=== PATIENT | male | born 1955 | race Hispanic/Latino ===

== ENCOUNTER 2016-10-25 11:34 | Emergency (ER) | payer OTHER ==
[~2016-10-25] VITALS: Ht 165.1 cm; Wt 78.2 kg
[~2016-10-25 11:34] MED LIST: ASPI325T32 PO; ATOR40TA69 PO; BUPR100T7 PO; DES50 PO; LISI-571 PO; METF500T4 PO
[2016-10-25 11:37] VITALS: BP 125/75; PULSE 64; RESP 16; O2SAT 97
--- NOTE | 2016-10-25 11:42 | ED.REPORT ---
HPI-Chest Pain 40 and Over Date of Service Oct 25, 2016 ED Provider: Jenna Villalobos MD Patient is a 61 year old male w/ a hx of DM (no insulin), HTN, and stroke who presents to the ED accompanied by his due to chest pain that woke him up at 0400 this morning. Pt denies SOB and nausea, and is not currently experiencing any symptoms. He had one aspirin [employer]. He doesn't remember what pill he takes for blood pressure. A previous stroke has left him numb in his left chest and left arm. Pt saw a doctor 2 days ago, but was not having any symptoms at the time. Nursing Notes Stated Complaint: CHEST PAIN Chief Complaint: Chest Pain Nursing Notes Reviewed: Yes Allergies: Coded Allergies: No Known Allergies (Verified , 10/25/16) Scheduled Aspirin (Aspirin) 325 Mg Tablet 325 MG PO DAILY Atorvastatin Calcium (Atorvastatin Calcium) 40 Mg Tablet 40 MG PO HS Bupropion (Bupropion) 100 Mg Tablet 100 MG PO BID Lisinopril (Lisinopril) 5 Mg Tablet 5 MG PO DAILY Metformin (Metformin) 500 Mg Tablet 500 MG PO BID Please take twice a day for 1 week, then increase to three times a day for 1 week, then two tabs twice a day Scheduled PRN Trazodone (Trazodone) 50 Mg Tablet 50 MG PO HS PRN PRN For Sleep General Time Seen by MD: 11:41 Chief Complaint Chest pain Hx Obtained From: Patient Arrived By: Walk-in Sudden in Onset?: Yes Onset Occurred: 5 - 8 hours ago Symptom Duration: Since onset Location: : Chest left Quality: Pressure Radiation: : Does not radiate Severity: Current: No pain currently Severity: Maximum: Mild Pertinent Negative: Pt denies other symptoms Recent Healthcare: Recent doctor visit Similar Sx Previous: No Past Medical History Past Medical History Reports: Diabetes mellitus, Hypertension Past Surgical History colonoscopy Smoking History Former Smoker, Unknown if Ever Smoker Social History Alcohol Use: Denies alcohol use Drug Use: Denies drug use Other Social History: Good social support Ambulatory Status Independent Review of Systems Respiratory: Denies: Shortness of breath Cardiovascular: Reports: Chest pain GI: Denies: Nausea Complete sys rev & neg: except as marked. Physical Exam Initial Vital Signs Vital Signs (First) Date Time Temp Pulse Resp B/P Pulse Ox O2 Delivery O2 Flow Rate FiO2 10/25/16 11:37 36.7 64 16 125/75 97 Room Air Initial VS: Reviewed Head / Eyes: Atraumatic, Normocephalic, PERRL ENT: Mucous membranes moist, Conjunctiva normal, No scleral icterus Neck: Supple, Non-tender, Full range of motion Back: No CVA tenderness Extremities: Vascular intact, Neuro intact, No swelling, No tenderness Skin: Warm, Dry, No cyanosis Neurologic: Alert, Oriented, Nonfocal Psychiatric: Mood/affect normal, Behavior normal, Normal thought content General/Constitutional: Awake, Alert, No acute distress, Well appearing, Cooperative, Not toxic appearing Respiratory / Chest: Atraumatic, Breath sounds NL, Breath sounds = bilat, No respiratory distress, No rales, No rhonchi, No wheezing, No retractions Cardiovascular: Heart rate NL, Regular rhythm, Heart sounds NL, No gallop, No murmurs, No rubs Abdomen: Atraumatic, Soft, Non-tender, No guarding, No rebound, BS normoactive Interpretation & Diagnostics Lab Results Interpretation Result Diagram: 10/25/16 1145 10/25/16 1145 Test 10/25/16 11:45 White Blood Count 9.9th/mm3 (3.8-10.1) Red Blood Count 5.57mil/mm3 (4.40-5.80) Hemoglobin 16.6g/dL (13.8-17.2) Hematocrit 48.3% (41.0-50.0) Mean Corpuscular Volume 86.7fL (81-100) Mean Corpuscular Hemoglobin 29.8pg (27.0-35.0) Mean Corpuscular Hemoglobin Concent 34.4% (32.0-37.0) Red Cell Distribution Width 12.5% (12.3-15.4) Platelet Count 238bil/L (150-400) Neutrophils (%) (Auto) 57.2% (40-74) Lymphocytes (%) (Auto) 35.8% (14-46) Monocytes (%) (Auto) 4.8% (4-12) Eosinophils (%) (Auto) 1.9% (0-5) Basophils (%) (Auto) 0.2% (0-3) Sodium Level 136mEq/L (134-144) Potassium Level 4.3mEq/L (3.5-5.2) Chloride Level 98mEq/L (97-108) Carbon Dioxide Level 23mmol/L (18-29) Blood Urea Nitrogen 12mg/dL (8-27) Creatinine 0.74mg/dL (0.76-1.27) Estimat Glomerular Filtration Rate 114mL/min (>59) Glucose Level 308mg/dL (60-99) Calcium Level 9.2mg/dL (8.5-10.1) Magnesium Level 2.0mg/dL (1.6-2.6) Total Bilirubin 0.5mg/dL (0.0-1.2) Aspartate Amino Transf (AST/SGOT) 26U/L (0-50) Alanine Aminotransferase (ALT/SGPT) 45U/L (0-44) Alkaline Phosphatase 149U/L (25-160) Troponin T < 0.010ug/L (0.0-0.011) Total Protein 7.3g/dL (6.4-8.4) Albumin 4.3g/dL (3.4-5.0) ECG Interpretation Time: 12:00 Interpreted by: ED physician Normal ECG Interpretation: Normal ECG w/ rate of... (74) X-Ray Chest Interpretation Chest Xray Interpretation: IMPRESSION: Mildly reduced inspiratory volume, and no source of chest pain found. Dictated by: Harpreet Hathaway M.D. on 10/25/2016 at 12:52 Approved by: Harpreet Hathaway M.D. on 10/25/2016 at 12:52 View: Portable Interpretation / Wet Read by: Interpret - Radiologist Re-Eval/Medical Decision Counseled Regarding: Diagnosis, Lab results, Need for follow-up, When/why to return to ED Discharge & Departure Primary Impression: Non-cardiac chest pain Disposition: Home Discharge Condition All VS Reviewed: Yes Condition: Stable Additional Instructions: Your EKG and blood work do not show any signs of heart attack. You did not have any change to the chest/chest wall sensation with nitro. I do NOT think that the chest sensation you are having is due to your heart. I do think it is related to the sensory changes to the area after your stroke. You have an apt with Dr Dorsey next week. Please discuss this with her and she may decide that doing an out patient nuclear medicine stress test could help in seeing if your heart is at further risk of a heart attack. Return to the Emergency Department if you experience any new or worsening symptoms. Thank you for coming in today Referrals: Meg Maria MD (PCP) Sy Attestation Portion of this note were transcribed by Francesco Ramos. I, Dr. Villalobos, personally performed the history, physical exam, and medical decision-making: I reviewed and confirmed the accuracy for the information in the transcribed note. Signed by: sy Mahmood, 10/25/16 1500 copies to: Meg Maria MD, Shawna L MD Oct 25, 2016 11:42 FRANCESCO RAMOS Oct 25, 2016 11:53
[2016-10-25 12:01] LABS: BASOPHILS % (AUTO) 0.2 % (0-3); EOSINOPHILS % (AUTO) 1.9 % (0-5); MONOCYTES % (AUTO) 4.8 % (4-12); Mean Corpuscular Hemoglobin 29.8 pg (27.0-35.0); Mean Corpuscular Volume 86.7 fL (81-100); NEUTROPHILS % (AUTO) 57.2 % (40-74); Platelet Count 238 bil/L (150-400)
[2016-10-25 12:24] LABS: TROPONIN T < 0.010 ug/L (0.0-0.011)
[2016-10-25 12:25] VITALS: BP 113/56; PULSE 71; RESP 15; O2SAT 97
--- NOTE | 2016-10-25 12:54 | DRSVH ---
PROCEDURE: X-RAY CHEST ONE VIEW, PORTABLE ([id number]) INDICATIONS: pain TECHNIQUE: One view of the chest was acquired. COMPARISON: [facility], CR, XR CHEST 1VW (PORTABLE), 06/26/2015, 20:07. [facility], CR, CHEST 2VW, 11/26/2013, 21:38. FINDINGS: Surgical changes and devices: None. Lungs and pleura: No pleural effusions or pneumothorax. Lungs are clear. Mediastinum: Mediastinal contours appear normal. Heart size is normal. Bones and chest wall: No suspicious bony lesions. Overlying soft tissues appear unremarkable. IMPRESSION: Mildly reduced inspiratory volume, and no source of chest pain found. Dictated by: Harpreet Hathaway M.D. on 10/25/2016 at 12:52 Approved by: Harpreet Hathaway M.D. on 10/25/2016 at 12:52
[2016-10-25 14:08] VITALS: BP 106/57; PULSE 70; RESP 14; O2SAT 100
[2016-10-25] MEDS ORDERED: TRAZ-115 PO (15:07)
[2016-10-25] MEDS ORDERED: BUPR100T15 PO (15:07)
[2016-10-25 15:46] VITALS: BP 106/57; PULSE 70; RESP 14; O2SAT 100
== END 2016-10-25 15:48 | disposition home or self-care (01) ==
LOC: SED 11:34
DX: R07.89 Other chest pain (principal); E11.9 Type 2 diabetes mellitus without complications; I10 Essential (primary) hypertension; I69.398 Other sequelae of cerebral infarction; Z87.891 Personal history of nicotine dependence; Z79.82 Long term (current) use of aspirin; Z79.84 Long term (current) use of oral hypoglycemic drugs